=== PATIENT | male | born 1965 | race African-American/Black ===

== ENCOUNTER 2018-08-04 12:54 | Emergency (ER) | payer BC ==
[~2018-08-04] VITALS: Ht 195.6 cm; Wt 108.9 kg
[2018-08-04] MEDS ORDERED: AMLODIPINE BESY10 MG PO (13:24)
[2018-08-04] MEDS ORDERED: TRAMADOL 50 MG50 MG PO (13:25)
[2018-08-04] MEDS ORDERED: NAPROSYN500 MG PO (13:25)
[2018-08-04] MEDS ORDERED: NEURONTIN 300300 M1 PO (13:25)
[2018-08-04] MEDS ORDERED: LIORESAL 10 MG10 MG PO (13:26)
[2018-08-04 15:57] VITALS: BP 135/89
[2018-08-04] MEDS ORDERED: MEDROL DOSPAK21 TA1 PO (16:13)
== END 2018-08-04 16:00 | disposition home or self-care (01) ==
LOC: ER 12:54
DX: M54.12 Radiculopathy, cervical region (principal); F17.210 Nicotine dependence, cigarettes, uncomplicated; I10 Essential (primary) hypertension; Z88.1 Allergy status to other antibiotic agents